=== PATIENT | female | born 1950 ===

== ENCOUNTER → 2016-08-08 | Outpatient (CLI) | payer MEDICARE, OTHER | END | disposition disaster alternative care site (69) | LOC: GBCOE 12:17 | DX: Z12.31 Encounter for screening mammogram for malignant neoplasm of breast (principal); Z85.3 Personal history of malignant neoplasm of breast | CPT/HCPCS: G0202 ==

== ENCOUNTER 2016-08-15 10:06 | Emergency (ER) | payer MEDICARE, OTHER ==
--- NOTE | ~2016-08-15 | ER ---
PATIENT'S NAME: [facility] AGE: 66 Y [address] ROOM: [place] [address] LOCATION: ED ADMIT DATE: 08/15/2016 ER/Outpatient Report DISCHARGE DATE: 08/15/2016 FAMILY PHYSICIAN: Bang Anna MD ATTENDING PHYSICIAN: Re Malik Time of Arrival: 1006 hours. Time of Evaluation: 1015 hours. IDENTIFICATION: A 66-year-old female. CHIEF COMPLAINT: Cough and shortness of breath. HISTORY OF PRESENT ILLNESS: The patient is a 66-year-old female who has had some cough for several weeks, nonproductive. Today, after colonoscopy, she was short of breath. She did require some short bagging due to desat at the end of the procedure, was given an albuterol treatment but on discharge was saturating fine and doing better. She is now short of breath. ALLERGIES: TO GLIMEPIRIDE, SULFA, DEMEROL, CEPHALEXIN, PENICILLIN, ALBUMIN, AND TETANUS. CURRENT MEDICATIONS: 1. Lisinopril 5 mg daily. 2. Metformin 1000 mg b.i.d. 3. Fosamax 70 mg weekly. MEDICAL PROBLEMS: Osteoporosis, diabetes mellitus type 2, hypertension. PRIOR SURGERIES: Colonoscopy today, right shoulder surgery, neck fusion, tonsillectomy, and nasal polyps removed. SOCIAL HISTORY: The patient lives here in [place]. She is retired. She is . Tobacco use, denies. Alcohol use, denies. Drug use, denies. REVIEW OF SYSTEMS: All systems reviewed and negative other than what is noted in the HPI. PHYSICAL EXAMINATION: PATIENT'S NAME: [facility] AGE: 66 Y [address] ROOM: [place] [address] LOCATION: ED ADMIT DATE: 08/15/2016 ER/Outpatient Report DISCHARGE DATE: 08/15/2016 FAMILY PHYSICIAN: Bang Anna MD ATTENDING PHYSICIAN: Re Malik VITAL SIGNS: Blood pressure 167/82, weight 64 kg, pulse 102, respirations 22, temperature 98.4, sats 93% on room air. GENERAL: A 66-year-old female, in no acute distress, although at times, she does has almost a spasm and a cough with some stridor. HEENT: Head: Normocephalic atraumatic. Ears: TMs translucent both ears. Eyes: Pupils equal and reactive to light and accommodation. Extraocular movements intact. Nose: Mucosa pink. No lesions or drainage. Mouth: No lesions. Pharynx benign. NECK: Supple. No lymphadenopathy. LUNGS: Clear to auscultation. No rhonchi, wheezes, or rales. HEART: Regular rate and rhythm. No murmur, rub, or gallop. ABDOMEN: Soft, nondistended, nontender. SKIN: [place], warm, and dry. No lesions or rashes noted. No lower extremity edema. NEURO: The patient is alert and oriented x4. Cranial nerves 2 through 12 grossly intact. Motor strength 5/5 throughout. Sensation intact to light touch. LABORATORY DATA AND X-RAYS: Lactate 1.8, hemoglobin 14.8, hematocrit 44, platelets 227, white count 6.7 with a normal differential. Sodium 142, potassium 3.9, chloride 106, CO2 of 23, BUN 7, creatinine 0.6, blood sugar 194. AST 51, ALT 79, proBNP less than 30. Chest x-ray two-view, streaky parenchymal opacity at the left suprahilar area, left infrahilar area, and medial left base consistent with infiltrate and atelectasis. Fibrotic changes and scarring could also contribute to observe appearance per Radiology. EMERGENCY DEPARTMENT COURSE: The patient was given racemic epinephrine treatment with some improvement in her symptoms. She was given 60 mg Solu-Medrol IV. IMPRESSION: 1. Left perihilar pneumonia. 2. Chronic cough, may be secondary to ROSI inhibitor. 3. Elevated liver enzymes. 4. Diabetes mellitus with hyperglycemia. PLAN: Z-Simone as directed, albuterol 2 puffs q.4 hours p.r.n. wheezing. Follow up if any respiratory distress immediately, otherwise follow up with Dr. Anna next week, and then Dr. Regalado, I also followed up as he had been seeing her at [facility], and recommended to see an document manager, so I did give her the card for ENT to call to make an allergy appointment. I did discuss with her PATIENT'S NAME: Joesph LEÓNULLY Wendy [facility] AGE: 66 Y [address] ROOM: [place], [place] [address] LOCATION: [facility] ADMIT DATE: 08/15/2016 ER/Outpatient Report DISCHARGE DATE: 08/15/2016 FAMILY PHYSICIAN: Bang Anna MD ATTENDING PHYSICIAN: Re Malik and her that they may want to stop her ROSI inhibitor. All questions were answered, and the patient remained in improved and stable condition. RE MALIK MD CAR/modl /[id number] d: 08/15/[id number] t: 08/22/161925, OUTPATIENT REPORT
[2016-08-15 10:57] LABS: ALBUMIN 3.8 gm/dL (3.5-5.0); ALK PHOS 66 IU/L (33-138); ALT 79 IU/L (12-78); ANION GAP 16.9 (10.0-19.0); AST 51 IU/L (10-40); BLOOD UREA NITROGEN 7 mg/dL (6-24); CALCIUM 8.4 mg/dL (8.5-10.5); CHLORIDE 106 mMol/L (96-110); CO2 23 mMol/L (22-32); CREATININE 0.6 mg/dL (0.5-1.1); ESTIMATED GFR (MDRD EQUATION) > 60; POTASSIUM 3.9 mMol/L (3.7-5.1); SODIUM 142 mMol/L (135-145); TOTAL BILIRUBIN 0.4 mg/dL (0.0-1.5); TOTAL PROTEIN 7.1 g/dL (6.0-8.4)
[2016-08-15 11:03] LABS: BASOPHIL # 0.1 K/uL (0.0-0.2); BASOPHIL % 0.9 %; EOSINOPHIL # 0.1 K/uL (0.0-0.5); EOSINOPHIL % 0.9 %; HEMOGLOBIN 14.8 g/dL (10.0-15.0); IMMATURE GRANULOCYTE # 0.1 K/uL (0.0-0.3); IMMATURE GRANULOCYTE % 1.6 %; LYMPHOCYTE # 1.9 K/uL (0.8-4.0); LYMPHOCYTE % 28.5 %; MCH 31.2 pg (27.0-34.0); MCHC 33.6 gm/dL (32.0-36.5); MCV 92.8 fl (83.0-98.0); MONOCYTE # 0.3 K/uL (0.0-1.0); MONOCYTE % 4.8 %; MPV 9.4 fl (9.4-12.4); NEUTROPHIL # (ANC) 4.2 K/uL (1.8-7.8); NEUTROPHIL % 63.3 %; NRBC % 0 /100WBC (0-0.00); PLATELET COUNT 227 K/uL (150-450); RBC 4.74 M/uL (3.50-5.50); RDW-CV 12.8 % (11.9-14.6); WBC 6.7 K/uL (4.0-11.0)
== END 2016-08-15 11:43 | disposition disaster alternative care site (69) ==
LOC: GMED 10:06
PROVIDERS: Family Medicine
DX: J18.9 Pneumonia, unspecified organism (principal); E11.65 Type 2 diabetes mellitus with hyperglycemia; R74.8 Abnormal levels of other serum enzymes; I10 Essential (primary) hypertension; M81.0 Age-related osteoporosis without current pathological fracture; Z79.84 Long term (current) use of oral hypoglycemic drugs; Z79.899 Other long term (current) drug therapy; Z88.0 Allergy status to penicillin; Z88.2 Allergy status to sulfonamides; Z88.7 Allergy status to serum and vaccine; Z88.1 Allergy status to other antibiotic agents; Z88.8 Allergy status to other drugs, medicaments and biological substances; Z98.890 Other specified postprocedural states
CPT/HCPCS: J2930

== ENCOUNTER → 2016-08-15 | Outpatient (CLI) | payer MEDICARE, OTHER | END | disposition disaster alternative care site (69) | LOC: LHSC 17:08 | DX: Z12.11 Encounter for screening for malignant neoplasm of colon (principal) ==